=== PATIENT | female | born 1945 | race Caucasian/White ===

== ENCOUNTER → 2016-04-20 | Outpatient (CLI) | payer BC ==
[~2016-04-20] MED LIST: ALBU1AER9 INH; ASPI1TAB83; CETI10TA84 PO; CHOL100010 PO; CIPR-255 PO; DEXA0.5E3; GLC/500 PO; HYDR-3419 PO; LEVO75TA PO; MOME220A INH; POTASSIUM CITRATE PO; PRAV20TA PO; SNG10 PO; [UNRECOGNIZED DRUG - CODE] PO
== END | disposition home or self-care (01) ==
LOC: C.MAMM 14:35
PROVIDERS: ATTEND Internal Medicine
DX: S32.009A Unspecified fracture of unspecified lumbar vertebra, initial encounter for closed fracture (principal); X58.XXXA Exposure to other specified factors, initial encounter

== ENCOUNTER → 2016-05-24 | Outpatient (CLI) | payer BC | END | disposition home or self-care (01) | LOC: C.PAPS 09:35 | PROVIDERS: ATTEND Obstetrics & Gynecology | DX: Z01.419 Encounter for gynecological examination (general) (routine) without abnormal findings (principal) ==

== ENCOUNTER → 2016-08-05 | Outpatient (CLI) | payer BC ==
[2016-08-05 09:43] LABS: ESTIMATED AVERAGE GLUCOSE 105 mg/dl; HA1C FLAG Normal (Normal)
[2016-08-05 09:52] LABS: CALCIUM 9.1 mg/dl (8.5-10.1)
[2016-08-05 09:55] LABS: BLOOD UREA NITROGEN 16 mg/dl (7-18); BUN/CREATININE RATIO 20.8 (10-20); CARBON DIOXIDE 28 mmol/L (21-32); CHLORIDE 106 mmol/L (98-107); CREATININE 0.75 mg/dl (0.60-1.20); GLUCOSE 96 mg/dl (70-99); POTASSIUM 4.1 mmol/L (3.5-5.1); SODIUM 141 mmol/L (136-145)
--- NOTE | 2016-08-09 11:52 | CODING QUERY MEDICAL NECESSITY ---
SUPPORTING DIAGNOSIS NEEDED Dr. Bustamante, A supporting diagnosis is required for the test/procedure performed on this patient in order for us to be reimbursed by the patient's insurance. Please provide a supporting diagnosis for the following test/procedure listed below next to the test name along with your signature. *If there is no additional diagnosis for this patient that would support the following test/procedure please document that below next to the test/procedure. Test(s)/Procedure(s) that require a supporting diagnosis: * [id number] GLYCATED HEMOGLOBIN DIAGNOSIS: DATE OF SERVICE: 08/05/16 Provider Signature: Date: Thank you Thaddeus Chaparro [place] [employer] Management Once completed, please kindly fax back to [phone] For questions please call [phone]
== END | disposition home or self-care (01) ==
LOC: C.LABFOXMH 09:01
PROVIDERS: ATTEND Internal Medicine
DX: E88.81 Metabolic syndrome and other insulin resistance (principal); E11.9 Type 2 diabetes mellitus without complications

== ENCOUNTER → 2016-11-05 | Outpatient (CLI) | payer BC ==
[~2016-11-05] MED LIST changes: +OPTIRAY 320 IV PRN
--- NOTE | 2016-11-05 14:38 | DIAGNOSTIC IMAGING REPORT ---
CT SOFT TISSUE NECK WITH CT DOSE: 294.15 mGy.cm CLINICAL HISTORY: Persistent palpable right neck mass. TECHNIQUE: Helical images were acquired during intravenous administration of 93 cc of Optiray 320. A dose lowering technique was utilized adhering to the principles of ALARA. COMPARISON STUDY: None. FINDINGS: The visualized portions of the lung apices are unremarkable. The patient is status post a right lobe thyroidectomy. No salivary gland masses are visualized. There are no pathologically enlarged cervical lymph nodes. No necrotic nodes are evident. There are no fluid collections suspicious for abscess. There is no evidence of airway compromise. No mucosal space masses are visualized. Incidental note is made of prominent bilateral internal jugular veins, each of which measures approximately 2 cm in diameter. There is a radiopaque marker at the level of the reported palpable abnormality near the undersurface of the right mandible posteriorly. There are no corresponding pathologic masses. There are mild degenerative changes within the cervical spine. IMPRESSION: 1. Surgically absent right lobe of the thyroid 2. No pathologic masses identified. No evidence of pathologic adenopathy. Electronically signed by: Martín Navarro M.D. 11/05/2016 2:37 PM Dictated Date/Time: 11/05/2016 2:33 PM
== END | disposition home or self-care (01) ==
LOC: C.CTS 14:11
PROVIDERS: ATTEND Internal Medicine Hospice and Palliative Medicine
DX: R22.1 Localized swelling, mass and lump, neck (principal)

== ENCOUNTER → 2016-12-03 | Outpatient (CLI) | payer BC ==
[~2016-12-03] MED LIST changes: -OPTIRAY 320 IV PRN
[2016-12-03 10:35] LABS: BLOOD UREA NITROGEN 14 mg/dl (7-18); BUN/CREATININE RATIO 18.3 (10-20); CALCIUM 9.2 mg/dl (8.5-10.1); CARBON DIOXIDE 30 mmol/L (21-32); CHLORIDE 106 mmol/L (98-107); CREATININE 0.75 mg/dl (0.60-1.20); GLUCOSE 93 mg/dl (70-99); POTASSIUM 4.1 mmol/L (3.5-5.1); SODIUM 141 mmol/L (136-145)
[2016-12-03 11:04] LABS: ESTIMATED AVERAGE GLUCOSE 100 mg/dl; HA1C FLAG Normal (Normal)
== END | disposition home or self-care (01) ==
LOC: C.LABFOXMH 09:55
PROVIDERS: ATTEND Internal Medicine
DX: E03.9 Hypothyroidism, unspecified (principal); E11.9 Type 2 diabetes mellitus without complications

== ENCOUNTER → 2016-12-14 | Outpatient (CLI) | payer BC ==
--- NOTE | 2016-12-14 14:31 | DIAGNOSTIC IMAGING REPORT ---
C-SPINE ROUTINE 4 OR 5 VIEWS CLINICAL HISTORY: 71 years-old Female presenting with PAIN, tingling down the arm. TECHNIQUE: Lateral, bilateral oblique, frontal, and open-mouth odontoid views of the cervical spine were obtained. COMPARISON: Correlation made to CT neck from 11/05/2016. FINDINGS: Slight reversal of normal lordosis centered at C4-5. Mild vertebral body height loss noted at C5 and C6. Multilevel degenerative change from C4-5 through C6-7. Osseous neural foraminal narrowing suspected at these levels, in large part due to uncovertebral hypertrophy. This is most severe on the right and is better seen on most recent CT. Normal predental interval. Lateral masses of C1 articulate normally with C2. No radiographic evidence of acute fracture or subluxation. No prevertebral soft tissue swelling. Lung apices clear. IMPRESSION: Multilevel degenerative changes from C4-5 through C6-7 with right greater than left osseous neural foraminal narrowing at these levels. This is better appreciated on most recent CT from 11/05/2016. Electronically signed by: Michael Qureshi M.D. 12/14/2016 2:29 PM Dictated Date/Time: 12/14/2016 2:27 PM
== END | disposition home or self-care (01) ==
LOC: C.RAD 13:47
PROVIDERS: ATTEND Internal Medicine
DX: M54.2 Cervicalgia (principal)

== ENCOUNTER → 2017-01-20 | Outpatient (CLI) | payer BC ==
--- NOTE | 2017-01-20 14:35 | MAMMOGRAPHY REPORT ---
BILATERAL DIGITAL SCREENING MAMMOGRAM WITH CAD: 01/20/2017 CLINICAL HISTORY: Routine screening. Patient has no complaints. TECHNIQUE: Current study was also evaluated with a Computer Aided Detection (CAD) system. Bilateral CC and MLO views were obtained. COMPARISON: Comparison is made to exams dated: 01/19/2016 mammogram, 01/15/2015 mammogram, 4 mammogram, 01/11/2013 mammogram, 01/11/2012 mammogram, and 01/08/2011 mammogram - [facility]. BREAST COMPOSITION: There are scattered areas of fibroglandular density in both breasts. FINDINGS: No suspicious masses, calcifications, or areas of architectural distortion are noted in ei ther breast. There has been no significant interval change compared to prior exams. Bilateral benign -appearing calcifications are not significantly changed. Bilateral asymmetries are stable. IMPRESSION: ACR BI-RADS CATEGORY 2: BENIGN There is no mammographic evidence of malignancy. A 1 year screening mammogram is recommended. The pa tient will receive written notification of the results. Approximately 10% of breast cancers are not detected with mammography. A negative mammographic report should not delay biopsy if a clinically suggestive mass is present. Azul Tineo M.D. /:01/20/2017 12:22:14 Manager Image: Harriett NOGUEIRA(Analy)(M), [facility] letter sent: Normal 1/2 BI-RADS Code: ACR BI-RADS Category 2: Benign
== END | disposition home or self-care (01) ==
LOC: C.MAMM 10:23
PROVIDERS: ATTEND Internal Medicine
DX: Z12.31 Encounter for screening mammogram for malignant neoplasm of breast (principal)

== ENCOUNTER → 2017-02-21 | Outpatient (CLI) | payer BC ==
--- NOTE | 2017-02-21 13:51 | DIAGNOSTIC IMAGING REPORT ---
KUB CLINICAL HISTORY: N20.0 [id number] COMPARISON STUDY: 01/12/2016 FINDINGS: The renal shadows are partially obscured overlying bowel gas and fecal material. No radiopaque urinary tract calculi are visualized. There is no pathologic bowel dilatation. There is an eggshell calcification within the left upper quadrant, unchanged the prior study. 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 IMPRESSION: No urinary tract calculi identified on conventional radiographic imaging Electronically signed by: Martín Navarro M.D. 02/21/2017 1:49 PM Dictated Date/Time: 02/21/2017 1:48 PM
== END | disposition home or self-care (01) ==
LOC: C.RAD 13:27
PROVIDERS: ATTEND Urology
DX: N20.0 Calculus of kidney (principal)

== ENCOUNTER 2017-04-03 18:44 | Emergency (ER) | payer BC ==
[~2017-04-03] VITALS: Ht 160 cm; Wt 67.5 kg
[~2017-04-03 18:44] MED LIST changes: -ASPI1TAB83; +ASPI1TAB83 PO
[2017-04-03 18:46] VITALS: TEMP 36.9; Ht 160 cm; Wt 67.5 kg
[2017-04-03] MEDS ORDERED: ACETAMINOPHEN 500 MG TAB PO STA (19:31)
[2017-04-03] MEDS ORDERED: SODIUM CHLORIDE 0.9% 1000ML 1,000 ML IV STA (19:31)
[2017-04-03 19:45] LABS: BASO % 0.1 %; BASO ABS # 0.01 K/uL (0-0.2); EOS % 0.5 %; EOS ABS # 0.04 K/uL (0-0.5); HEMATOCRIT 41.9 % (37-47); HEMOGLOBIN 14.4 g/dL (12.0-16.0); IG# 0.02 K/uL (0.00-0.02); LYMPH % 2.8 %; LYMPH ABS # 0.24 K/uL (1.2-3.4); MEAN CELL VOLUME 88.8 fL (80-100); MEAN CORPUSCULAR HEMOGLOBIN 30.5 pg (25-34); MEAN CORPUSCULAR HGB CONC 34.4 g/dl (32-36); MEAN PLATELET VOLUME 10.3 fL (7.4-10.4); MONO % 2.6 %; MONO ABS # 0.23 K/uL (0.11-0.59); NEUT % 93.8 %; NEUT ABS # 8.17 K/uL (1.4-6.5); PLATELET COUNT 204 K/uL (130-400); RED CELL DISTRIBUTION WIDTH CV 13.8 % (11.5-14.5); RED CELL DISTRIBUTION WIDTH SD 45.1 fL (36.4-46.3); WHITE BLOOD COUNT 8.71 K/uL (4.8-10.8)
[2017-04-03] MEDS ORDERED: MONT1TAB3 PO (20:01)
[2017-04-03] MEDS ORDERED: PRAV20TA2 PO (20:01)
[2017-04-03] MEDS ORDERED: MOME220A INH (20:01)
[2017-04-03] MEDS ORDERED: POTA-74 PO (20:01)
[2017-04-03 20:03] LABS: CALCIUM 8.7 mg/dl (8.5-10.1); CREATININE 0.63 mg/dl (0.60-1.20); POTASSIUM 3.7 mmol/L (3.5-5.1)
[2017-04-03] MEDS ORDERED: CHOL200010 PO (20:04)
[2017-04-03] MEDS ORDERED: CEVI1CAP PO (20:04)
[2017-04-03 20:06] LABS: INFLUENZA B ANTIGEN Neg for Influ B (NEG)
--- NOTE | 2017-04-03 20:08 | DIAGNOSTIC IMAGING REPORT ---
CHEST ONE VIEW PORTABLE CLINICAL HISTORY: ABDOMINAL PAIN/GI pain COMPARISON STUDY: 07/05/2012 FINDINGS: The bones soft tissues and hemidiaphragms are normal. The cardiomediastinal silhouette is normal. The lungs are clear. The pulmonary vasculature is normal. IMPRESSION: Negative chest. The above report was generated using voice recognition software. It may contain grammatical, syntax or spelling errors. Electronically signed by: Eber Brooks M.D. 04/03/2017 8:07 PM Dictated Date/Time: 04/03/2017 8:06 PM
--- NOTE | 2017-04-03 20:09 | DIAGNOSTIC IMAGING REPORT ---
ADDENDUM Note: A tiny cortical fracture lateral margin tip distal fibula is seen only on the left foot series. Is not appreciated on the ankle series. Electronically signed by: Eber Brooks M.D. 04/03/2017 8:12 PM Dictated Date/Time: 04/03/2017 8:12 PM ORIGINAL REPORT L ANKLE MIN 3 VIEWS ROUTINE CLINICAL HISTORY: pain fall trauma. Pain. COMPARISON: None. DISCUSSION: No evidence for fracture or dislocation. Soft tissue edema laterally. Small heel spur. Subtalar joint is intact. IMPRESSION: Soft tissue edema. No acute bony abnormality. The above report was generated using voice recognition software. It may contain grammatical, syntax or spelling errors. Electronically signed by: Eber Brooks M.D. 04/03/2017 8:08 PM Dictated Date/Time: 04/03/2017 8:07 PM
--- NOTE | 2017-04-03 20:12 | DIAGNOSTIC IMAGING REPORT ---
L FOOT MIN 3 VIEWS ROUTINE CLINICAL HISTORY: pain fall pain. Trauma. COMPARISON: None. DISCUSSION: Tiny cortical fracture lateral margin tip distal fibula. This was not seen on ankle series. The foot specifically shows degenerative change combined with postoperative changes of a prior bunionectomy. Moderate soft tissue edema. IMPRESSION: 1. Tiny cortical fracture lateral margin tip distal fibula.. 2. This is not seen on the ankle series. 3. No additional acute bony abnormality. The above report was generated using voice recognition software. It may contain grammatical, syntax or spelling errors. Electronically signed by: Eber Brooks M.D. 04/03/2017 8:10 PM Dictated Date/Time: 04/03/2017 8:08 PM
--- NOTE | 2017-04-03 20:16 | DIAGNOSTIC IMAGING REPORT ---
HEAD WITHOUT CONTRAST (CT) CT DOSE: 837.40 mGy.cm HISTORY: Trauma. Mental status change. pain fall TECHNIQUE: Multiaxial CT images of the head were performed without the use of intravenous contrast. A dose lowering technique was utilized adhering to the principles of ALARA. Comparison: 06/10/2006 Findings: The paranasal sinuses and mastoid air cells are clear. The calvarium and skull base are intact. The ventricles and sulci are within normal limits. There is no mass, hematoma, midline shift, or acute infarct. Age-related mild atrophy and chronic small vessel change. Impression: No acute intracranial abnormality. Age-related change. The above report was generated using voice recognition software. It may contain grammatical, syntax or spelling errors. Electronically signed by: Eber Brooks M.D. 04/03/2017 8:14 PM Dictated Date/Time: 04/03/2017 8:13 PM
--- NOTE | 2017-04-03 20:18 | DIAGNOSTIC IMAGING REPORT ---
FACIAL BONES-MXILLOFAC WITHOUT CT DOSE: HISTORY: Trauma. Pain. pain fall TECHNIQUE: Multiaxial CT images of the maxillofacial region were performed and reformatted in the coronal plane without the use of contrast. A dose lowering technique was utilized adhering to the principles of ALARA. COMPARISON: 06/10/2006 FINDINGS: The visualized cervical spine, skull base, pterygoid plates, nasal bones, lamina papyracea, orbital floors, mandible, and zygomatic arches are intact. No fractures. The orbits are unremarkable. IMPRESSION: No fractures within the maxillofacial region. The above report was generated using voice recognition software. It may contain grammatical, syntax or spelling errors. Electronically signed by: Eber Brooks M.D. 04/03/2017 8:17 PM Dictated Date/Time: 04/03/2017 8:15 PM
[2017-04-03 20:37] LABS: INFLUENZA A PCR Neg for Influ A (NEG); INFLUENZA B PCR Neg for Influ B (NEG)
[2017-04-03 21:35] VITALS: BP 107/69; PULSE 99; O2SAT 95
--- NOTE | 2017-04-03 21:36 | EMERGENCY ROOM VISIT NOTE ---
History Report prepared by Daniele: Reginaldo Chacko Under the Supervision of: Dr. Isaiah Llamas M.D. First contact with patient: 19:18 Chief Complaint: FALL Stated Complaint: FELL ON FACE, CUT LIP, SORE ANKLE, COLD AND FEVER History of Present Illness The patient is a 72 year old female who presents to the Emergency Room with complaints of constant facial pain s/p fall occurring just prior to arrival. She also complains of left ankle pain. She feels that her front tooth may be loose. The patient states that she tripped over a curb and landed on her face. She states that she hasn't felt well today, and had a fever shortly prior to arrival. She fell while at [facility] visiting her . The patient did not lose consciousness during the fall. She denies any chest pain, abdominal pain, diarrhea, or congestion. She is not on any blood thinners. Source of History: patient Onset: Just prior to arrival Position: head (face) Timing: constant Associated Symptoms: + fevers, No LOC, No chest pain, No abdominal pain, No diarrhea Note: Additional symptoms: left ankle pain. She denies congestion. Review of Systems See HPI for pertinent positives and negatives. A total of ten systems were reviewed and were otherwise negative. Past Medical & Surgical Medical Problems: (1) Hypothyroid (2) Metabolic syndrome Surgical Problems: (1) H/O partial thyroidectomy Family History No pertinent family history stated. Social History Smoking Status: Never Smoker Alcohol Use: none Drug Use: none Marital Status: Occupation Status: retired Current/Historical Medications Scheduled Aspirin (Aspirin), 81 MG PO DAILY Cetirizine (Zyrtec), 10 MG PO DAILY Cevimeline Hcl (Cevimeline Hcl), 30 MG PO BID Cholecalciferol (Vitamin D), 2,000 INTER.UNIT PO DAILY Levothyroxine Sodium (Synthroid), 75 MCG PO DAILY Metformin Hcl (Glucophage), 500 MG PO BID Montelukast Sodium (Singulair), 10 MG PO HS Potassium Chloride (Potassium Chloride Er), 10 MEQ PO BID Pravastatin Sodium (Pravachol), 20 MG PO DAILY Scheduled PRN Mometasone Furoate (Inhalation (Asmanex Twisthaler 120 Me), 2 PUFFS INH BID PRN for Exacerbation Allergies Coded Allergies: Penicillins (Verified Allergy, Unknown, 05/09/09) Physical Exam Vital Signs Date Time Temp Pulse Resp B/P (MAP) Pulse Ox O2 Delivery O2 Flow Rate FiO2 04/03/17 21:35 99 20 107/69 95 Room Air 04/03/17 20:36 103 18 149/88 96 Room Air 04/03/17 19:37 105 18 142/69 96 Room Air 04/03/17 19:33 104 04/03/17 18:46 36.9 113 18 123/71 96 Room Air Physical Exam GENERAL: Awake, alert, uncomfortable-appearing, in no distress HENT: Normocephalic, atraumatic. Edematous upper lip with small inner lip laceration. Lose upper front tooth. EYES: Normal conjunctiva. Sclera non-icteric. NECK: Supple. No nuchal rigidity. FROM. No JVD. RESPIRATORY: Clear to auscultation. CARDIAC: Regular rate, normal rhythm. Extremities warm and well perfused. Pulses equal. ABDOMEN: Soft, non-distended. No tenderness to palpation. No rebound or guarding. No masses. RECTAL: Deferred. MUSCULOSKELETAL: Chest examination reveals no tenderness. The back is symmetrical on inspection without obvious abnormality. There is no CVA tenderness to palpation. No joint edema. LOWER EXTREMITIES: Calves are equal size bilaterally. No edema. No discoloration. Mild swelling to the lateral malleolus of the left ankle. NEURO: Normal sensorium. No sensory or motor deficits noted. SKIN: No rash or jaundice noted. Medical Decision & Procedures ER Provider Diagnostic Interpretation: Radiology results as stated below per my review and radiologist interpretation: FACIAL BONES-MXILLOFAC WITHOUT COMPARISON: 06/10/2006 FINDINGS: The visualized cervical spine, skull base, pterygoid plates, nasal bones, lamina papyracea, orbital floors, mandible, and zygomatic arches are intact. No fractures. The orbits are unremarkable. IMPRESSION: No fractures within the maxillofacial region. The above report was generated using voice recognition software. It may contain grammatical, syntax or spelling errors. Electronically signed by: bEer Brooks M.D. 04/03/2017 8:17 PM HEAD WITHOUT CONTRAST (CT) Findings: The paranasal sinuses and mastoid air cells are clear. The calvarium and skull base are intact. The ventricles and sulci are within normal limits. There is no mass, hematoma, midline shift, or acute infarct. Age-related mild atrophy and chronic small vessel change. Impression: No acute intracranial abnormality. Age-related change. The above report was generated using voice recognition software. It may contain grammatical, syntax or spelling errors. Electronically signed by: Eber Brooks M.D. 04/03/2017 8:14 PM L FOOT MIN 3 VIEWS ROUTINE DISCUSSION: Tiny cortical fracture lateral margin tip distal fibula. This was not seen on ankle series. The foot specifically shows degenerative change combined with postoperative changes of a prior bunionectomy. Moderate soft tissue edema. IMPRESSION: 1. Tiny cortical fracture lateral margin tip distal fibula.. 2. This is not seen on the ankle series. 3. No additional acute bony abnormality. The above report was generated using voice recognition software. It may contain grammatical, syntax or spelling errors. Electronically signed by: Eber Brooks M.D. 04/03/2017 8:10 PM CHEST ONE VIEW PORTABLE FINDINGS: The bones soft tissues and hemidiaphragms are normal. The cardiomediastinal silhouette is normal. The lungs are clear. The pulmonary vasculature is normal. IMPRESSION: Negative chest. The above report was generated using voice recognition software. It may contain grammatical, syntax or spelling errors. Electronically signed by: Eber Brooks M.D. 04/03/2017 8:07 PM ORIGINAL REPORT L ANKLE MIN 3 VIEWS ROUTINE DISCUSSION: No evidence for fracture or dislocation. Soft tissue edema laterally. Small heel spur. Subtalar joint is intact. IMPRESSION: Soft tissue edema. No acute bony abnormality. The above report was generated using voice recognition software. It may contain grammatical, syntax or spelling errors. Electronically signed by: Eber Brooks M.D. 04/03/2017 8:08 PM Dictated Date/Time: 04/03/2017 8:07 PM ADDENDUM Note: A tiny cortical fracture lateral margin tip distal fibula is seen only on the left foot series. Is not appreciated on the ankle series. Electronically signed by: Eber Brooks M.D. 04/03/2017 8:12 PM Dictated Date/Time: 04/03/2017 8:12 PM Laboratory Results 04/03/17 19:35 Red Blood Count 4.72, Mean Corpuscular Volume 88.8, Mean Corpuscular Hemoglobin 30.5, Mean Corpuscular Hemoglobin Concent 34.4, Mean Platelet Volume 10.3, Neutrophils (%) (Auto) 93.8, Lymphocytes (%) (Auto) 2.8, Monocytes (%) (Auto) 2.6, Eosinophils (%) (Auto) 0.5, Basophils (%) (Auto) 0.1, Neutrophils # (Auto) 8.17, Lymphocytes # (Auto) 0.24, Monocytes # (Auto) 0.23, Eosinophils # (Auto) 0.04, Basophils # (Auto) 0.01 04/03/17 19:35 Test 04/03/17 19:30 04/03/17 19:35 04/03/17 20:33 Influenza Type A (RT-PCR) Neg for Influ A (NEG) Influenza Type A Antigen Neg for Influ A (NEG) Influenza Type B Antigen Neg for Influ B (NEG) Influenza Type B (RT-PCR) Neg for Influ B (NEG) White Blood Count 8.71 K/uL (4.8-10.8) Red Blood Count 4.72 M/uL (4.2-5.4) Hemoglobin 14.4 g/dL (12.0-16.0) Hematocrit 41.9 % (37-47) Mean Corpuscular Volume 88.8 fL (80-100) Mean Corpuscular Hemoglobin 30.5 pg (25-34) Mean Corpuscular Hemoglobin Concent 34.4 g/dl (32-36) Platelet Count 204 K/uL (130-400) Mean Platelet Volume 10.3 fL (7.4-10.4) Neutrophils (%) (Auto) 93.8 % Lymphocytes (%) (Auto) 2.8 % Monocytes (%) (Auto) 2.6 % Eosinophils (%) (Auto) 0.5 % Basophils (%) (Auto) 0.1 % Neutrophils # (Auto) 8.17 K/uL (1.4-6.5) Lymphocytes # (Auto) 0.24 K/uL (1.2-3.4) Monocytes # (Auto) 0.23 K/uL (0.11-0.59) Eosinophils # (Auto) 0.04 K/uL (0-0.5) Basophils # (Auto) 0.01 K/uL (0-0.2) RDW Standard Deviation 45.1 fL (36.4-46.3) RDW Coefficient of Variation 13.8 % (11.5-14.5) Immature Granulocyte % (Auto) 0.2 % Immature Granulocyte # (Auto) 0.02 K/uL (0.00-0.02) Anion Gap 9.0 mmol/L (3-11) Est Creatinine Clear Calc Drug Dose 72.3 ml/min Estimated GFR () 102.4 Estimated GFR (Non- 88.4 BUN/Creatinine Ratio 24.9 (10-20) Calcium Level 8.7 mg/dl (8.5-10.1) Urine Color YELLOW Urine Appearance CLEAR (CLEAR) Urine pH 6.5 (4.5-7.5) Urine Specific [place] 1.010 (1.000-1.030) Urine Protein NEG (NEG) Urine Glucose (UA) NEG (NEG) Urine Ketones NEG (NEG) Urine Occult Blood NEG (NEG) Urine Nitrite NEG (NEG) Urine Bilirubin NEG (NEG) Urine Urobilinogen NEG (NEG) Urine Leukocyte Esterase NEG (NEG) Laboratory results reviewed by me Medications Administered Medications (Trade) Dose Ordered Sig/Taran Route Start Time Stop Time Status Last Admin Dose Admin Sodium Chloride 1,000 ml @ 999 mls/hr Q1H1M STAT IV 04/03/17 19:31 04/03/17 20:31 DC 04/03/17 19:40 999 MLS/HR Acetaminophen (Tylenol Tab) 1,000 mg NOW STAT PO 04/03/17 19:31 04/03/17 19:36 DC 04/03/17 19:40 1,000 MG ECG Indication: other (fall) Rate (beats per minute): 104 Rhythm: sinus tachycardia Findings: no acute ischemic change, other (Normal axis. ) ED Course 1919: The patient was evaluated in room A10. A complete history and physical exam was performed. 2109: I applied CoPak to stabilize the patients tooth. She handled the procedure without difficulty. 2139: I reevaluated the patient. Discussed results and discharge instructions: she verbalized understanding and agreement. The patient is ready for discharge. Medical Decision I reviewed the patient's past medical history, medications, and the nursing notes as described above. The patient's presentation and history were concerning for etiologies such as fracture, dislocation, intra-abdominal, pneumothorax, intrathoracic , intracranial, neurologic, as well as other traumatic pathologies were entertained. The patient is a 72 y/o woman who presents to the emergency department after a mechanical fall when stepping onto curb and fell onto her face per HPI. On arrival the patient is uncomfortable but in NAD, AFVSS. On exam the patient has mild upper lip swelling with superficial minor inner upper lip laceration that does not require repair. Minor nasal bridge abrasion without laceration or crepitus. Upper incisor #8 is loose but remains in socket. No dental fx. Tooth stabilized with [place]. Otherwise, CT head and max-face negative for fx. Left distal fibula with minor cortical fx. Patient given walking boot and walker. Labs otherwise unremarkable including wbc wnl and influenza negative. BuN/Cr > 20 suggesting mild dehydration. Patient feeling improved after IVF hydration. Plan for pcp, dental, and ortho f/u. Findings and plan for follow-up reviewed with patient. Patient agreeable and d/c'd per discharge instructions. Medication Reconcilliation Current Medication List: was personally reviewed by me Blood Pressure Screening Patient's blood pressure: Normal blood pressure Blood pressure disposition: Did not require urgent referral Impression Primary Impression: Fall Additional Impressions: Tooth loose Fibula fracture Lip laceration Scribe Attestation The scribe's documentation has been prepared under my direction and personally reviewed by me in its entirety. I confirm that the note above accurately reflects all work, treatment, procedures, and medical decision making performed by me. Departure Information Dispostion Home / Self-Care Referrals London Bustamante M.D. (PCP) Nam Rosas MD Patient Instructions Ankle Fx, ED Laceration Mouth, ED Mechanical [facility], [facility] Additional Instructions Please follow up with your primary care physician and dentist on Tuesday for re- evaluation and tooth repair. Eat liquids and pureed foods only until your tooth is repaired. You should also follow up with orthopedics, Dr. Rosas, within one week. You were found to have a loose tooth from your fall that was stabilized with cement. You also had a small cortical fracture to your fibula, part of your ankle. Otherwise, your exam, CT scans, xrays, and lab results did not show signs of an emergent condition at this time. Acetaminophen for pain as needed. Walking boot with walker. Return to the emergency department for worsening symptoms as described in the accompanying instructions. Problem Qualifiers
== END 2017-04-03 21:59 | disposition home or self-care (01) ==
LOC: C.EDB 18:44 → C.EDA 21:59
DX: S01.511A Laceration without foreign body of lip, initial encounter (principal); S82.832A Other fracture of upper and lower end of left fibula, initial encounter for closed fracture; K08.89 Other specified disorders of teeth and supporting structures; W01.0XXA Fall on same level from slipping, tripping and stumbling without subsequent striking against object, initial encounter; Y92.128 Other place in nursing home as the place of occurrence of the external cause; E03.9 Hypothyroidism, unspecified; E88.81 Metabolic syndrome and other insulin resistance; Z79.82 Long term (current) use of aspirin; Z79.899 Other long term (current) drug therapy

== ENCOUNTER → 2017-04-14 | Outpatient (CLI) | payer BC ==
[~2017-04-14] MED LIST changes: -ALBU1AER9 INH; +CEVI1CAP PO; -CHOL100010 PO; +CHOL200010 PO; -CIPR-255 PO; -DEXA0.5E3; -HYDR-3419 PO; +MONT1TAB3 PO; +POTA-74 PO; -POTASSIUM CITRATE PO; -PRAV20TA PO; +PRAV20TA2 PO; -SNG10 PO; -[UNRECOGNIZED DRUG - CODE] PO
--- NOTE | 2017-04-14 13:38 | DIAGNOSTIC IMAGING REPORT ---
LEFT ANKLE 3 VIEWS CLINICAL HISTORY: Left ankle fracture. FINDINGS: 3 views of the left ankle are compared to left ankle and foot radiographs dated 04/03/2017. The skeletal structures are osteopenic. No fracture is seen. The ankle mortise is intact. There is a plantar calcaneal enthesophyte. A joint effusion is noted. Soft tissue swelling is present around the ankle. IMPRESSION: 1. Soft tissues and joint effusion. No left ankle fracture is identified. 2. The nondistracted fibular fracture seen on the left foot radiographs from 04/03/2017 was not visualized. Electronically signed by: Mookie Lam M.D. 04/14/2017 1:36 PM Dictated Date/Time: 04/14/2017 1:33 PM
== END | disposition home or self-care (01) ==
LOC: C.RDSM 11:04
PROVIDERS: ATTEND Internal Medicine
DX: S82.892A Other fracture of left lower leg, initial encounter for closed fracture (principal); X58.XXXA Exposure to other specified factors, initial encounter

== ENCOUNTER → 2017-07-27 | Outpatient (CLI) | payer BC ==
[2017-07-27 08:38] LABS: BLOOD UREA NITROGEN 15 mg/dl (7-18); CALCIUM 8.7 mg/dl (8.5-10.1); CARBON DIOXIDE 29 mmol/L (21-32); CHOLESTEROL 154 mg/dl (0-200); CREATININE 0.76 mg/dl (0.60-1.20); GLUCOSE 98 mg/dl (70-99); POTASSIUM 4.1 mmol/L (3.5-5.1); SODIUM 140 mmol/L (136-145)
[2017-07-27 08:44] LABS: LDL CHOLESTEROL CALCULATED 70 mg/dl
[2017-07-27 08:45] LABS: HEMOGLOBIN A1C 5.2 % (4.5-5.6)
== END | disposition home or self-care (01) ==
LOC: C.LABFOXMH 07:55
PROVIDERS: ATTEND Internal Medicine
DX: E11.9 Type 2 diabetes mellitus without complications (principal); E78.00 Pure hypercholesterolemia, unspecified